=== PATIENT | male | born 1965 | race Caucasian/White ===

== ENCOUNTER 2023-04-13 12:03 | Emergency (ER) | payer MEDICAID, SELFPAY ==
[2023-04-13 12:05] VITALS: BP 142/89; PULSE 97; RESP 20; TEMP 36.6; O2SAT 99; BMI 30.8
--- NOTE | 2023-04-13 12:05 | ED_ITS ---
HPI - Ear Problem General Chief complaint: Ear Problems Stated complaint: ear problem Source: patient Mode of arrival: ambulatory Limitations: no limitations History of Present Illness HPI Narrative: patient is a 57-year-old male who presents emergency department for evaluation of left ear pain for 1 week. Denies drainage from the ear hearing, fevers chills. He states that he believes he may have lost a hearing into the ear canal. had URI symptoms 4 days ago which have since resolved. Related Data Previous Rx's Medication Instructions Recorded amoxicillin 875 mg-potassium 1 tab PO BID #20 tabs 04/13/23 clavulanate 125 mg tablet Allergies Allergy/AdvReac Type Severity Reaction Status Date / Time No Known Allergies Allergy Verified 04/13/23 12:04 Review of Systems Review of Systems: Yes all other systems are reviewed and are negative [facility] Past Medical History Attestation statement: The following information was validated with the patient. Source: old records reviewed Physical Exam Vital Signs: Appearance: Alert.?Oriented to person, place and time. No acute distress.?Normal affect. Eyes: Pupils equal, round and reactive to light.? ENT: Pharynx normal.?? Right TM normal. Left TM erythematous with opacity. External canal with excoriation at 6 o'clock a concern for ecchymosis Neck: Normal inspection.? Neck supple.?? CVS: Heart sounds normal. Normal heart rate and rhythm.? Pulses normal.?? Respiratory: No respiratory distress.? Lung sounds clear to auscultation bilaterally?? Abdomen: Soft and non-tender. Normoactive bowel sounds. Skin: Skin warm and dry.? Normal skin color.? Extremities: No lower extremity edema.? Neuro: Moves all extremities spontaneously. Sensation intact bilaterally. CN II- XII intact. No focal neuro deficits. Ambulates with normal steady gait. Medical Decision Making Medical Decision Making MDM Narrative: patient is a 57-year-old male who presents emergency department for evaluation of ear pain. Upon physical examination Left TM erythematous with opacity. External canal with excoriation at 6 o'clock a concern for ecchymosis, likely traumatic in nature as he has been inserting Q-tips into the ear to clean it and scratching the inside of the ear. No vesicular eruptions to suggest Montgomery Gooden, no foreign bodies identified. No pre or postauricular tenderness, no mastoid tenderness. At this time feel that he is stable for discharge home, sent prescription for Augmentin to cover acute otitis media, and recommended outpatient follow-up. Advised to refrain from inserting anything into the ear canal and he verbalizes understanding of this. Differential Diagnosis Differential Diagnoses: The differential diagnosis associated with the presentation includes ( Acute otitis media, acute otitis externa, TM rupture, Andreina Gooden) Independent Historian Clinical information obtained from an independent historian. History obtained from or confirmed by: Spouse ( present at bedside who confirms history) Prescription Management I considered prescription management with: Antibiotic Discharge Plan Discharge Clinical Impression: Otitis media Patient Disposition: Home, Self-Care Instructions: Ear Infection (ED) Additional Instructions: as discussed, complete the entire course of antibiotics as prescribed for infection to your ear. DO NOT Insert anything into your ear, as this may worsen your symptoms and could increase the chances of rupturing your ear drum. Prescriptions: New amoxicillin-pot clavulanate 875-125 mg tablet 1 tab PO BID Qty: 20 0RF Referrals: ED Physician,Generic [Emergency Provider] - Alirio Swenson [Physician] - Interventions: ED Discharge Assessment Last Done: 04/13/23 12:15
== END 2023-04-13 12:20 | disposition home or self-care (01) ==
PROVIDERS: Emergency Provider Emergency Medicine
DX: H66.92 Otitis media, unspecified, left ear (principal)
CPT/HCPCS: 99282; 99283